=== PATIENT | female | born 1955 | race Caucasian/White ===

== ENCOUNTER 2025-07-24 05:47 | Day surgery (SDC) | payer MEDICARE ==
[2025-07-23 11:31] LABS: MEAN PLATELET VOLUME 9.5 FL (7.4-10.4); RED CELL DISTRIBUTION WIDTH 14.1 % (11.5-14.5)
[2025-07-23 11:45] LABS: CREATININE 0.63 MG/DL (0.40-0.90); TOTAL CARBON DIOXIDE 25.0 MMOL/L (24-32); eGFR > 90 ML/MIN
[2025-07-23 17:03] LABS: INR 1.1 INR
[~2025-07-24] VITALS: Ht 172.7 cm; Wt 73.0 kg
--- NOTE | 2025-07-24 06:33 | ELECTROCARDIOGRAPH REPORT ---
[facility] Test Date: 2025-07-24 Test Time: 06:31:22 Pat Name: HILARY HARDY Department: [facility] Patient ID: [id number] Room: Gender: F Occup Ther: [place] : 1955 Requested By: CESARIO FONTAINE Order Number: [id number] Reading MD: Dr. JUANCHO Fontaine Measurements Intervals [place] Rate: 55 P: 0 GA: 0 QRS: 81 QRSD: 93 T: 69 QT: 545 QTc: 522 Interpretive Statements Atrial fibrillation Borderline right axis deviation Borderline T abnormalities, inferior leads Prolonged QT interval Electronically Signed On 07-24-2025 16:48:[address] JUANCHO Fontaine Please click the below link to view image of tracing.
[2025-07-24 06:48] VITALS: BP 129/72; PULSE 47; RESP 15; TEMP 98; O2SAT 100
[2025-07-24] MEDS ORDERED: SOTA80TA73 PO (07:03)
[2025-07-24] MEDS ORDERED: LOSA100T58 PO (07:03)
[2025-07-24] MEDS ORDERED: HYDR-3686 PO (07:03)
[2025-07-24] MEDS ORDERED: AMLO10TA13 PO (07:03)
[2025-07-24] MEDS ORDERED: APIX5TAB3 PO (07:03)
[2025-07-24] MEDS ORDERED: amiodarone 150mg/dext, iso-os 100 ML IV ONE (07:30)
[2025-07-24] MEDS ORDERED: morphine 10mg/ml inj. IV ONE (07:30)
[2025-07-24] MEDS ORDERED: MIDAZolam 1mg/ml 10ml vial IV ONE (07:30)
[2025-07-24] MEDS ORDERED: normal saline 1000ml 1,000 ML IV SCH (07:30)
[2025-07-24] MEDS ORDERED: atropine 0.1mg/ml 10ml syringe IV ONE (07:30)
[2025-07-24 07:44] VITALS: RESP 15; O2SAT 96
[2025-07-24] MEDS ORDERED: midazolam 1 mg/ML 2ml injection ONE ×4 (08:01→08:25)
[2025-07-24] MEDS ORDERED: fentaNYL/PF 50MCG/1 ML 2ML syringe ONE (08:01)
[2025-07-24] MEDS ORDERED: atropine 0.1mg/ml 10ml syringe ONE (08:08)
[2025-07-24] MEDS ORDERED: amiodarone 50MG/ML inj IV ONE (08:08)
[2025-07-24 09:00] VITALS: BP 119/64; PULSE 59; RESP 12; O2SAT 93
[2025-07-24 09:15] VITALS: BP 118/62; PULSE 54; RESP 13; O2SAT 95
[2025-07-24 09:30] VITALS: BP 118/60; PULSE 48; RESP 14; O2SAT 99
[2025-07-24 09:40] VITALS: BP 122/65; PULSE 48; RESP 13; O2SAT 96
--- NOTE | 2025-07-25 08:20 | CARDIOLOGY REPORT ---
DATE OF SERVICE: 07/24/2025 DICTATING PHYSICIAN: JUANCHO Christianson MD ELECTRICAL CARDIOVERSION GENDER: Female. AGE: 69 years. INDICATION: The patient is a 69-year-old postmenopausal female with a history of nonobstructive CAD, hypertension, suspected sleep apnea, and who was found to be in AFib by her primary doctor recently and was referred. The patient was put on sotalol and Eliquis on 06/2025, continued to be in AFib, was scheduled for cardioversion. DESCRIPTION OF PROCEDURE: Anterior and posterior patches using biphasic electrical energy 200 joules x1, converted to normal sinus rhythm. The patient was initially bradycardic, requiring 0.5 mg of atropine after which her heart rate came back to 60s. Continue sotalol and Eliquis and then hold sotalol for heart rate less than 50 and if the patient continues to become bradycardic, we will consider changing sotalol to flecainide. The patient was recommended to have a sleep study. JUANCHO Christianson MD TID: [id number] RECEIPT: [id number] BC/JORGE cc: David Cobian
== END 2025-07-24 10:05 | disposition home or self-care (01) ==
LOC: SSTAY O 05:47
PROVIDERS: ATTEND Internal Medicine Cardiovascular Disease
DX: I48.0 Paroxysmal atrial fibrillation (principal); R94.31 Abnormal electrocardiogram [ECG] [EKG]; I25.10 Atherosclerotic heart disease of native coronary artery without angina pectoris; I10 Essential (primary) hypertension; E11.9 Type 2 diabetes mellitus without complications; Z79.01 Long term (current) use of anticoagulants; Z79.899 Other long term (current) drug therapy; Z90.710 Acquired absence of both cervix and uterus; Z98.890 Other specified postprocedural states; Z88.2 Allergy status to sulfonamides; Z82.49 Family history of ischemic heart disease and other diseases of the circulatory system; Z82.3 Family history of stroke
CPT/HCPCS: 36415; 80048; 82150; 83690; 85025; 85610; 92960; 93005; J0461; J2250; J3010; J7030; 99152; J0282